=== PATIENT | female | born 1975 | race Caucasian/White ===

== ENCOUNTER 2019-10-26 15:12 | Emergency (ER) | payer SELFPAY ==
--- NOTE | ~2019-10-26 | XR_ITS ---
XR chest 1V portable DATE: 10/26/2019 16:32 INDICATION: Cough TECHNIQUE: Portable upright AP chest on 11/05/2019 at 1620 hours COMPARISON: None FINDINGS: Normal heart size. No hilar or mediastinal enlargement. No pulmonary infiltrate or consolidation, pleural effusion or pulmonary vascular congestion or pneumo thorax. Status post cervical spine surgical fusion. Mild levoscoliosis of the thoracic spine. IMPRESSION: No active cardiopulmonary disease Reviewed, dictated and finalized at location A.
[2019-10-26 15:17] VITALS: BP 138/85; PULSE 139; RESP 20; TEMP 37.3; O2SAT 98
--- NOTE | 2019-10-26 15:43 | ECG_ITS ---
Measurements Intervals [place] Rate: 97 P: -2 IA: 124 QRS: -2 QRSD: 82 T: 26 QT: 399 QTc: 509 Interpretive Statements SINUS RHYTHM NONSPECIFIC ST ELEVATION IN ANTERIOR LEADS BORDERLINE T WAVE ABNORMALITY- INFERIOR LEADS BORDERLINE ECG Electronically Signed On 10-26-2019 18:56:30 CDT by Jun Russo D.O.
--- NOTE | 2019-10-26 15:50 | ED.GENADULT ---
HPI - General Adult General Chief complaint: Unspecified Stated complaint: PSYCH MED REFILL Time Seen by Provider: 10/26/19 15:17 Source: patient Mode of arrival: ambulatory Limitations: no limitations History of Present Illness HPI narrative: Patient is a 44-year-old female who presents to emergency department for evaluation of anxiety wanting a refill of her psych medications patient denies any recent illness. Patient presents with family. Patient notes history of chronic anxiety patient has had increasing anxiety of coronavirus. . Patient notes that she has had some rhinorrhea. Patient notes history of tobacco abuse and anxiety. Patient notes she is currently out of anxiety medicine but denies any suicidal or homicidal ideation. Related Data Allergies Allergy/AdvReac Type Severity Reaction Status Date / Time No Known Allergies Allergy Unverified 03/02/15 16:24 Review of Systems Review of Systems: All systems reviewed & are unremarkable except as noted in HPI and below PMFSH Past Medical History Medical History (Updated 10/26/19 @ 18:01 by Mohsen Ponce PA-C) Anxiety Social History Social History Smoking status: Never smoker Exam Narrative: Exam Narrative: GENERAL: Well-appearing, well-nourished, and in no acute distress. HEAD: Normocephalic, atraumatic. EYES: PERRLA and EOMI. ENT: Nares clear, no rhinorrhea or epistaxis. Mucous membranes moist. Oropharynx without tonsillar hypertrophy exudate or other lesions. NECK: Supple. No adenopathy or masses. CHEST: Clear to auscultation. No respiratory distress. No wheezes rales or rhonchi HEART: Tachycardic rate and regular rhythm. No murmur heard. Normal peripheral pulses. ABDOMEN: Soft, nontender, nondistended, normal active bowel sounds. EXTREMITIES: Normal range of motion. No edema. SKIN: Warm, dry, no rash. NEURO: No focal deficits. Alert and oriented x3. PSYCH: Normal mood and affect. Course Course Emergency Course: Patient resting comfortably in the room at this time feeling much better notes that she will follow with primary care as instructed patient will be treated for urinary tract infection will be given inhaler and has been advised to quit smoking with her wheezing afebrile nontoxic-appearing no distress no emesis felt appropriate for outpatient reevaluation. Vital Signs Vital signs: Vital Signs Temperature 99.1 F 10/26/19 15:17 Pulse Rate 139 H 10/26/19 15:17 Respiratory Rate 20 10/26/19 15:17 Blood Pressure 138/85 10/26/19 15:17 Pulse Oximetry 98 10/26/19 15:17 Temperature 99.1 F 10/26/19 15:17 Pulse Rate 139 H 10/26/19 15:17 Respiratory Rate 20 10/26/19 15:17 Blood Pressure 138/85 10/26/19 15:17 Pulse Oximetry 98 10/26/19 15:17 Medical Decision Making MDM Narrative Medical decision making narrative: See course for medical decision make Vital Signs Vital Signs: Vital Signs Temperature 99.1 F 10/26/19 15:17 Pulse Rate 139 H 10/26/19 15:17 Respiratory Rate 10/26/19 15:17 Blood Pressure 138/85 10/26/19 15:17 Pulse Oximetry 98 10/26/19 15:17 Temperature 99.1 F 10/26/19 15:17 Pulse Rate 139 H 10/26/19 15:17 Respiratory Rate 10/26/19 15:17 Blood Pressure 138/85 10/26/19 15:17 Pulse Oximetry 98 10/26/19 15:17 Discharge Plan Discharge Clinical Impression: Urinary tract infection, Bronchitis Patient Disposition: Home, Self-Care Condition: Stable Instructions: Antibiotic Form, Acute Bronchitis (ED) Additional Instructions: Follow up with your primary care provider within 5-7 days. Go to ER for shortness of breath, difficulty breathing, chest pain, fever/chills, weakness, nauseau/vomitting, etc. or any other concerns. Take any prescribed medications as directed. If you do not have a drug allergy to tylenol or motrin and can tolerate it then take tylenol or motrin as needed for dis
[2019-10-26 16:14] LABS: Basophils Percent Auto 0.3 % (0.2-1.2); Eosinophils Percent Auto 0.2 % (0-4.4); Hematocrit 44.2 % (37.0-47.0); Hemoglobin 15.7 g/dL (12.0-15.0); Immature Granulocyte Absolute 0.08 K/mm3 (0.00-0.031); Immature Granulocyte Percent A 0.5 % (0-0.5); Lymphocytes Percent Auto 11.5 % (18.3-44.2); Mean Corpuscular HGB Conc 35.5 g/dl (32-36); Mean Corpuscular Volume 84.5 fl (80-100); Mean Platelet Volume 11.7 fl (7.4-10.4); Monocytes Absolute Auto 1.3 K/mm3 (0.1-0.6); Monocytes Percent Auto 8.2 % (2.6-8.5); Neutrophils Absolute Auto 12.4 K/mm3 (1.3-6.7); Neutrophils Percent Auto 79.3 % (45.5-73.1); Platelet Count Result 391 k/mm3 (150-375); Red Blood Count 5.23 M/mm3 (4.2-5.4); Red Cell Distribution Width 12.7 % (11.5-14.5); White Blood Count 15.6 K/mm3 (4.5-10.0)
[2019-10-26 16:26] LABS: Alanine Aminotransferase 19 U/L (4-35); Albumin Level 4.9 g/dL (3.5-5.1); Alkaline Phosphatase 106 U/L (38-126); Aspartate Amino Transferase 23 U/L (14-36); Bilirubin,Total 0.9 mg/dL (0.2-1.3); Blood Urea Nitrogen 15 mg/dL (7-17); Calcium 9.5 mg/dL (8.4-10.2); Carbon Dioxide 20 mmol/L (22-30); Chloride 105 mmol/L (98-107); Estimated CRCL calculation 78 ml/min; Estimated Glomerular Filt Rate > 60; Glucose 118 mg/dL (65-105); Potassium 2.9 mmol/L (3.4-5.0); Sodium 138 mmol/L (137-145)
[2019-10-26] MEDS: LORAZEPAM INJ 2 MG/ML VIAL 1 MG IV PUSH (16:44)
[2019-10-26 17:10] LABS: Add Urine Microscopic? YES; Appearance Urine Cloudy (Clear); Bacteria Urine Trace /hpf; Bilirubin Urine 1+ (Negative); Blood Urine Negative (Negative); Color Urine Amber (Yellow); Glucose Urine UA 1+ mg/dL (Negative); Ketones Urine 2+ mg/dL (Negative); Leukocyte Esterase Ur Negative LEU/UL (Negative); Mucus Urine Heavy /lpf; Nitrate Urine Negative (Negative); Protein Urine 3+ mg/dL (Negative); Specific Grav Ur 1.028 (1.001-1.035); Squamous Epithelial Cell Urine Many /hpf (Few); WBC Urine 16-20 /hpf
[2019-10-26] MEDS: predniSONE 20 MG TABLET 60 MG PO (17:19)
[2019-10-26 17:36] LABS: Amphetamine Screen Urine Negative (Negative); Barbiturate Screen Urine Negative (Negative); Benzodiazepines Screen Urine Negative (Negative); Cannabinoid Screen Urine Positive (Negative); Cocaine Screen Urine Negative (Negative); Methadone Screen Urine Negative (Negative); Opiate Screen Urine Negative (Negative); Phencyclidine Screen Urine Negative (Negative)
[2019-10-26 18:17] VITALS: BP 134/101; PULSE 105; RESP 19; O2SAT 100
[2019-10-26 18:18] VITALS: BP 134/101; PULSE 105; O2SAT 100
== END 2019-10-26 18:19 | disposition home or self-care (01) ==
PROVIDERS: Emergency Medicine Emergency Medical Services; Emergency Provider Emergency Medicine
DX: N39.0 Urinary tract infection, site not specified (principal); J40 Bronchitis, not specified as acute or chronic; F41.9 Anxiety disorder, unspecified; Z72.0 Tobacco use
CPT/HCPCS: 36415; 71045; 80053; 80307; 81001; 85025; 87086; 87088; 93005; 96374; 99284; A9270; J2060; J7512

== ENCOUNTER 2019-10-26 21:27 | Emergency (ER) | payer SELFPAY ==
[2019-10-26 21:23] VITALS: BP 142/100; PULSE 124; RESP 18; TEMP 36.5; O2SAT 98
--- NOTE | 2019-10-26 21:57 | ED.GENADULT ---
HPI - General Adult General Chief complaint: Psychiatric Symptoms Stated complaint: hearing voices History of Present Illness HPI narrative: Patient is a 44-year-old female who presents the ER with 2 complaints. She reports that she is hearing voices but they are not telling her to hurt herself or anybody else. She typically hears them through the TV or telephone. She reports she supposed take BuSpar for this but has not been. She reports history of marijuana use but no drug use today. Her other complaint is shortness of breath. Patient was seen earlier in the ER and found to have a leukocytosis with a negative chest x-ray and a mild UTI. She is prescribed albuterol as well as Keflex. Patient reports she has not used her albuterol for her shortness of breath. She does however continue to smoke cigarettes. Patient reports she does have a place to stay and feels safe there. Related Data Allergies Allergy/AdvReac Type Severity Reaction Status Date / Time No Known Allergies Allergy Unverified 03/02/15 16:24 Review of Systems Review of Systems: All systems reviewed & are unremarkable except as noted in HPI and below Constitutional: Constitutional: Denies chills, Denies fever(s) and Denies weakness ENT: Denies nasal congestion and Denies sore throat Cardiovascular: Cardiovascular: Denies chest pain Respiratory: Respiratory: Denies cough, Reports dyspnea and Reports wheezing Gastrointestinal: Gastrointestinal: Denies abdominal pain, Denies nausea and Denies vomiting Psychiatric: Psychiatric: Denies anxiety, Reports depression, Denies homicidal ideation and Denies suicidal ideation PMF Past Medical History Medical History (Updated 10/27/19 @ 00:15 by Justo Smart MD) Anxiety Depression Social History Social History (Updated 10/26/19 @ 22:25 by Justo Smart MD) Smoking status: Current every day smoker Exam Narrative: Exam Narrative: GENERAL: Well-appearing, well-nourished, and in no acute distress. HEAD: Normocephalic, atraumatic. ENT: Mucous membranes moist.. CHEST: Coarse ronchi worse at the bases bilaterally. No respiratory distress. HEART: Tachycardic and regular. Normal peripheral pulses. ABDOMEN: Soft, nontender, nondistended. EXTREMITIES: Normal range of motion. No edema. NEURO: Alert and oriented x3. PSYCH: Normal mood and flat affect. Does not seem to be responding to internal stimuli. No homicidal or suicidal ideation. Course Course Emergency Course: Lung sounds improved with albuterol use. Patient has no additional complaints. Hydrated and tachycardia improved. Discharge home. Vital Signs Vital signs: Vital Signs Temperature 97.7 F 10/26/19 21:23 Pulse Rate 124 H 10/26/19 21:23 Respiratory Rate 18 10/26/19 21:23 Blood Pressure 142/100 H 10/26/19 21:23 Pulse Oximetry 98 10/26/19 21:23 Temperature 97.7 F 10/26/19 21:23 Pulse Rate 124 H 10/26/19 21:23 Respiratory Rate 18 10/26/19 21:23 Blood Pressure 142/100 H 10/26/19 21:23 Pulse Oximetry 98 10/26/19 21:23 Medical Decision Making Vital Signs Vital Signs: Vital Signs Temperature 97.7 F 10/26/19 21:23 Pulse Rate 124 H 10/26/19 21:23 Respiratory Rate 18 10/26/19 21:23 Blood Pressure 142/100 H 10/26/19 21:23 Pulse Oximetry 98 10/26/19 21:23 Temperature 97.7 F 10/26/19 21:23 Pulse Rate 124 H 10/26/19 21:23 Respiratory Rate 18 10/26/19 21:23 Blood Pressure 142/100 H 10/26/19 21:23 Pulse Oximetry 98 10/26/19 21:23 Lab Data Lab results narrative: Labs reviewed from previous visit today. Patient with leukocytosis Discharge Plan Discharge Clinical Impression: Bronchitis Patient Disposition: Home, Self-Care Condition: Stable Instructions: Acute Bronchitis (ED) Additional Instructions: Return to the ER if you have chest pain or shortness of breath, cannot keep down food or water, you lose consciousness, you have additional concerns. Pre
--- NOTE | 2019-10-26 22:36 | PC.NURSE ---
called with concern of not sleeping for 3-5 days and how she wasn't able to get any of her medication due to the virus going around. He states she needs meds that are normally taken and Benadryl so she wont from not being able to sleep. MD Smart notified of phone call.
[2019-10-26] MEDS: SODIUM CHLORIDE 0.9% IV 1,000 ML 999 ML IV CONT (23:10)
[2019-10-26 23:11] VITALS: BP 125/95; PULSE 121; RESP 29; O2SAT 98
[2019-10-27 00:25] VITALS: PULSE 99; RESP 38; O2SAT 100
== END 2019-10-27 00:22 | disposition home or self-care (01) ==
PROVIDERS: Emergency Provider Emergency Medicine
DX: F41.9 Anxiety disorder, unspecified (principal); F32.9 Major depressive disorder, single episode, unspecified; F17.210 Nicotine dependence, cigarettes, uncomplicated; J40 Bronchitis, not specified as acute or chronic
CPT/HCPCS: 96360; 99283; J7030

== ENCOUNTER 2019-11-03 16:00 | Emergency (ER) | payer MEDICAID, SELFPAY ==
[2019-11-03 16:17] VITALS: BP 109/91; PULSE 110; RESP 19; TEMP 36.6; O2SAT 99
--- NOTE | 2019-11-03 17:06 | ED.SKABFB ---
HPI - Skin/Abscess/Foreign Bdy General Chief complaint: Skin/Abscess/Foreign Body Stated complaint: rash Time Seen by Provider: 11/03/19 16:22 Source: patient Mode of arrival: ambulatory Limitations: no limitations History of Present Illness HPI narrative: This is a 44 year old female that presents to the ER for itchy rash to the arms x 1 week. Reports tingling in her hands as well. Reports similar symptoms in her . Denies fever, erythema or warmth. Related Data Home Medications Medication Instructions Recorded Confirmed hydroxyzine HCl 25 mg PO QID PRN 11/03/19 olanzapine 10 mg PO HS 11/03/19 propranolol 10 mg PO Q12H 11/03/19 trazodone 100 mg PO HS PRN 11/03/19 Allergies Allergy/AdvReac Type Severity Reaction Status Date / Time No Known Allergies Allergy Verified 11/03/19 16:20 Review of Systems Review of Systems: Narrative: CONSTITUTIONAL: Denies fever SKIN: Reports rash and itching. All systems reviewed & are unremarkable except as noted in HPI and below PMFSH Past Medical History Medical History (Updated 11/03/19 @ 17:10 by Erica Sullivan PA-C) Anxiety Depression Social History Social History (Updated 10/26/19 @ 22:25 by Justo Smart MD) Smoking status: Current every day smoker Gender identity (if verbalized by the patient): Female Exam Narrative: Exam Narrative: GENERAL: Well-appearing, well-nourished, and in no acute distress. HEAD: Normocephalic, atraumatic. EYES: EOMI. EXTREMITIES: Normal range of motion. No edema. SKIN: Warm, dry. Small papules with excoriation to the hands NEURO: No focal deficits. Alert and oriented x3. PSYCH: Normal mood and affect Course Vital Signs Vital signs: Vital Signs Temperature 97.9 F 11/03/19 16:17 Pulse Rate 110 H 11/03/19 16:17 Respiratory Rate 19 11/03/19 16:17 Blood Pressure 109/91 H 11/03/19 16:17 Pulse Oximetry 99 11/03/19 16:17 Temperature 97.9 F 11/03/19 16:17 Pulse Rate 110 H 11/03/19 16:17 Respiratory Rate 19 11/03/19 16:17 Blood Pressure 109/91 H 11/03/19 16:17 Pulse Oximetry 99 11/03/19 16:17 MDM - Skin/Abscess/Foreign Bdy MDM Narrative Medical decision making narrative: Patient presents the emergency department for itchy rash with similar symptoms and her . Patient and will be treated for scabies. She is to follow-up with her primary care doctor. She is given warnings to return to the ER Critical Care Time Critical Care Time Critical Care Time: No Discharge Plan Discharge Clinical Impression: Rash and nonspecific skin eruption Patient Disposition: Home, Self-Care Condition: Stable Instructions: Scabies (ED) Additional Instructions: Return to the emergency department if you experience fever, redness and swelling of your arms, or any other symptoms that are concerning to you Apply cream as prescribed. Claritin daily for itching Follow up with your primary care doctor Prescriptions: New permethrin 5 % cream 1 applic TOPICAL ONCE Qty: 60 RF: 0 No Action olanzapine 10 mg Tablet 10 mg PO HS RF: 0 propranolol 10 mg Tablet 10 mg PO Q12H RF: 0 trazodone 100 mg Tablet 100 mg PO HS PRN (Reason: Insomnia) RF: 0 hydroxyzine HCl 25 mg Tablet 25 mg PO QID PRN (Reason: Anxiety) RF: 0 Follow-up/Referrals: PHYSICIAN,VARNISH MAKER [Primary Care Provider] -
== END 2019-11-03 17:19 | disposition home or self-care (01) ==
PROVIDERS: Emergency Provider Emergency Medicine
DX: R21 Rash and other nonspecific skin eruption (principal); F41.9 Anxiety disorder, unspecified; F32.9 Major depressive disorder, single episode, unspecified; F17.200 Nicotine dependence, unspecified, uncomplicated
CPT/HCPCS: 99283

== ENCOUNTER 2019-11-17 18:00 | Emergency (ER) | payer MEDICAID, SELFPAY ==
[2019-11-17 18:15] VITALS: BP 153/91; PULSE 88; RESP 16; TEMP 37.1; O2SAT 99
--- NOTE | 2019-11-17 18:24 | ED.DENTAL ---
HPI - Dental/Oral General Chief complaint: Dental/Oral Stated complaint: tooth ache Time Seen by Provider: 11/17/19 18:16 Source: patient and RN notes reviewed Mode of arrival: ambulatory Limitations: no limitations History of Present Illness HPI Narrative: Patient presents today complaining of right upper tooth pain since this afternoon. The affected tooth has previously been filled with temporary material, but she has not been able to get in to see a dentist for root canal during the pandemic. Patient does have a dentist. She currently rates her pain 10 and has been taking Aleve with mild relief. She was on cephalexin 1 month ago for UTI. MD Complaint: tooth pain Related Data Home Medications Medication Instructions Recorded Confirmed hydroxyzine HCl 25 mg PO QID PRN 11/03/19 11/17/19 olanzapine 10 mg PO HS 11/03/19 11/17/19 propranolol 10 mg PO Q12H 11/03/19 11/17/19 trazodone 100 mg PO HS PRN 11/03/19 11/17/19 lisinopril 20 mg DAILY 11/17/19 11/17/19 Allergies Allergy/AdvReac Type Severity Reaction Status Date / Time No Known Allergies Allergy Verified 11/17/19 18:04 Review of Systems Review of Systems: Narrative: CONSTITUTIONAL: Denies body aches, fever, chills, or sweats. EYES: Denies visual changes, redness, or discharge. ENT: Denies rhinorrhea, congestion, sore throat, or otalgia.+ Tooth pain CARDIOVASCULAR: Denies chest pain, palpitations, or edema. RESPIRATORY: Denies cough or dyspnea. GASTROINTESTINAL: Denies abdominal pain, nausea, vomiting, or diarrhea. GENITOURINARY: Denies dysuria or hematuria. SKIN: Denies rash, itching, or wounds. MUSCULOSKELETAL: Denies back pain, joint pain, or myalgia. NEUROLOGIC: Denies headache, numbness, tingling, or weakness. PSYCH: Denies depression or anxiety. [facility] Past Medical History Medical History (Updated 11/17/19 @ 18:26 by Angeles Giron, [employer]YM[employer]ST[employer] INSTRUCTOR, ) Anxiety Depression Social History Social History (Updated 10/26/19 @ 22:25 by Justo Smart MD) Smoking status: Current every day smoker Gender identity (if verbalized by the patient): Female Comments At time of signature, I have reviewed and agree with nursing past medical, surgical, social and family history unless otherwise noted. Please see nursing chart for further information. There is no relevant family history pertinent to the presenting complaint Exam Narrative: Exam Narrative: GENERAL: Well-appearing, well-nourished, and in no acute distress. HEAD: Normocephalic, atraumatic. EYES: EOMI. No redness or drainage. Conjunctivae normal. ENT: Mucous membranes pink and moist. Periapical abscess adjacent to tooth #6 with surrounding erythematous gingiva. Tooth appears to have temporary filling material in place. Throat normal. Uvula midline. NECK: Normal AROM. Supple. No lymphadenopathy. CHEST: No respiratory distress. EXTREMITIES: Normal range of motion. No edema. SKIN: Warm, dry, no rash. Capillary refill normal. Normal skin turgor. NEURO: No focal deficits. Alert and oriented x3. Gait steady. PSYCH: Normal affect. No signs of depression or anxiety. Course Vital Signs Vital signs: Vital Signs Temperature 98.7 F 11/17/19 18:15 Pulse Rate 88 11/17/19 18:15 Respiratory Rate 16 11/17/19 18:15 Blood Pressure 153/91 H 11/17/19 18:15 Pulse Oximetry 99 11/17/19 18:15 Temperature 98.7 F 11/17/19 18:15 Pulse Rate 88 11/17/19 18:15 Respiratory Rate 16 11/17/19 18:15 Blood Pressure 153/91 H 11/17/19 18:15 Pulse Oximetry 99 11/17/19 18:15 Reviewed. Pt has been instructed to follow up with her PCP regarding her elevated blood pressure today. MDM - Dental/Oral Differential Diagnosis Differential diagnosis: Likely gingival abscess, dental caries, toothache and dental abscess Critical Care Time Critical Care Time Critical Care Time: No Discharge Plan Discharge Clinical Impression: Dental abscess Patient Disposition: Home, Self-Care C
== END 2019-11-17 18:30 | disposition home or self-care (01) ==
PROVIDERS: Emergency Provider Nurse Practitioner
DX: K04.7 Periapical abscess without sinus (principal); R03.0 Elevated blood-pressure reading, without diagnosis of hypertension; F41.9 Anxiety disorder, unspecified; F32.9 Major depressive disorder, single episode, unspecified; Z98.1 Arthrodesis status
CPT/HCPCS: 99213; G0463

== ENCOUNTER 2025-06-17 14:03 | Emergency (ER) | payer SELFPAY ==
--- NOTE | ~2025-06-17 | XR_ITS ---
EXAMINATION: XR foot LT min 3V, 06/17/2025 14:45 COVER CUTTER MACHINE HISTORY: L foot wound COMPARISON: No comparisons available. Findings: No acute fracture or malalignment. No significant degenerative changes. Soft tissues unremarkable. Impression: No acute fracture or malalignment. Reviewed, dictated and finalized at location P. R CUTTER MACHINE Impression: No acute fracture or malalignment.
--- NOTE | ~2025-06-17 | XR_ITS ---
EXAMINATION: XR foot RT min 3V, 06/17/2025 14:45 BOOM CRANE OPERATOR HISTORY: R foot wound COMPARISON: No comparisons available. Findings: No osseous destruction or fracture is identifiedHallux valgus. Moderate degenerative changes of the first metatarsophalangeal joint. Soft tissues unremarkable. Impression: No acute fracture or malalignment. Reviewed, dictated and finalized at location P. CRANE OPERATOR Impression: No acute fracture or malalignment.
--- NOTE | ~2025-06-17 | XR_ITS ---
EXAMINATION: XR hip BI 2V w AP pelvis, 06/17/2025 14:45 DISHWASHER PREPARER HISTORY: hip pain COMPARISON: No comparisons available. Findings: No acute fracture or malalignment. No significant degenerative changes. Soft tissues unremarkable. Impression: No acute fracture or malalignment. Reviewed, dictated and finalized at location P. WASHER PREPARER Impression: No acute fracture or malalignment.
--- NOTE | ~2025-06-17 | XR_ITS ---
EXAMINATION: XR chest 2V, 06/17/2025 16:05 UTILITY PERSON HISTORY: r/o pneumonia COMPARISON: No comparisons available. Technique: 2 views obtained. Findings: The lungs are clear, no effusion. No pneumothorax. Heart is normal size. Mediastinal and hilar contours are within normal limits. Bony thorax no acute abnormality. Impression: No acute cardiopulmonary abnormality. Reviewed, dictated and finalized at location P. ITY PERSON Impression: No acute cardiopulmonary abnormality.
[2025-06-17 13:50] VITALS: BP 115/95; PULSE 75; RESP 19; TEMP 33.1; O2SAT 100
--- NOTE | 2025-06-17 14:16 | ED.ALCOHOL ---
HPI - Alcohol General Chief Complaint: Alcohol Stated Complaint: all over pain ETOH History of Present Illness HPI narrative: Patient is a 50-year-old female who presents to the ER with acute intoxication and cold exposure. Per EMS, patient was in the police department lobby when she got kicked out for bad behavior. Approximately two hours later she was found across the street, intoxicated, in inclement weather. Patient endorses a history of high blood pressure and opiate addiction. She reports she does not take any regular medications. 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 She denies any numbness/tingling in her hands/feet, but endorses pain all over, especially in her bilateral hips.. Pt denies any shortness of breath, chest pain, or abdominal pain. She endorses full range of motion in all extremities. Related Data Home Medications ?Medication ?Instructions ?Recorded ?Confirmed ?Last Taken ?Type hydroxyzine HCl 25 mg tablet 25 mg PO QID PRN Anxiety 11/03/19 11/17/19 Unknown History olanzapine 10 mg tablet 10 mg PO HS 11/03/19 11/17/19 Unknown History propranolol 10 mg tablet 10 mg PO Q12H 11/03/19 11/17/19 Unknown History trazodone 100 mg tablet 100 mg PO HS PRN Insomnia 11/03/19 11/17/19 Unknown History lisinopril 20 mg tablet 20 mg DAILY 11/17/19 11/17/19 Unknown History Allergies Allergy/AdvReac Type Severity Reaction Status Date / Time No Known Allergies Allergy Verified 11/17/19 18:04 Review of Systems Review of Systems: All systems reviewed & are unremarkable except as noted in HPI and below PMFSH Past Medical History Medical History Depression Anxiety Social History Social History Smoking status: Current every day smoker Gender identity (if verbalized by the patient): Female Exam Narrative: GENERAL: Well appearing, well-nourished, non-toxic, in no acute distress. HEAD: Normocephalic, atraumatic. NECK: Supple. No adenopathy, no masses. RESPIRATORY: Airway patent, respirations nonlabored. Clear to auscultation bilaterally, no rales, rhonchi, wheezing. CARDIOVASCULAR: Regular rate and rhythm without murmurs, rubs, or gallops. Peripheral pulses 2+ and equal bilaterally. ABDOMINAL: Soft, nontender, nondistended, no hepatosplenomegaly. Normoactive BS. MUSCULOSKELETAL: Moves all extremities. Strength/ROM intact without gross deformities. Bilateral hip pain with palpation SKIN: cool, reddened bilateral feet and hands, trench foot present on both feet, blood blisters (R foot quarter-sized, L foot dime-sized) on bilateral great toe phalanxes with no visible drainage NEURO: A&O X3. Speech clear. Cranial nerves II-XII intact. No ataxic movements. PSYCHIATRIC: Appropriate mood and affect. Normal interaction. Course Vital Signs Vital signs: Vital Signs Temperature 33.1 C L 06/17/25 13:50 Pulse Rate 75 06/17/25 13:50 Respiratory Rate 19 06/17/25 13:50 Blood Pressure 115/95 H 06/17/25 13:50 Pulse Oximetry 100 06/17/25 13:50 Oxygen Delivery Room Air 06/17/25 13:50 Temperature 37.1 C 06/17/25 19:11 Pulse Rate 79 06/17/25 15:07 Respiratory Rate 18 06/17/25 15:07 Blood Pressure 115/95 H 06/17/25 13:50 Pulse Oximetry 99 06/17/25 15:07 Oxygen Delivery Room Air 06/17/25 13:50 MDM - Alcohol MDM Narrative Medical decision making narrative: Patient is a 50-year-old female who presents to the ER with acute intoxication and cold exposure. Per EMS, patient was in the police department lobby when she got kicked out for bad behavior. Approximately two hours later she was found across the street, intoxicated, in inclement weather. Patient endorses a history of high blood pressure and opiate addiction. She reports she does not take any regular medications. 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 She denies any numbness/tingling in her hands/feet, but endorses pain all over, especially in her bilateral hips. Pt denies any shortness of breath, chest pain, or abdominal pain. She endorses full range of motion in all extremities. Labs Ordered: CBC, CMP, UA, UDS, magnesium, phosphorus, lactic acid Imaging Ordered: Right foot x-ray, left foot x-ray, bilateral hip x-ray Medications Ordered: Tdap Results: Patient's bilateral hip x-rays, right foot x-ray, and left foot x-ray indicates no acute osseous abnormalities. Diagnosis: trench foot, bilateral foot wounds Risks: CIWA: CIWA-Ar for Alcohol Withdrawal from [facility] on 06/17/2025 All calculations should be rechecked by clinician prior to use RESULT SUMMARY: 3 points Patients with scores <= typically do not require medication for withdrawal. INPUTS: Nausea/vomiting ?> 0 = No nausea and no vomiting Tremor ?> 0 = No tremor Paroxysmal sweats ?> 0 = No sweat visible Anxiety ?> 1 = Mildly anxious Agitation ?> 0 = Normal activity Tactile disturbances ?> 2 = Mild itching, pin and needles, burning, or numbness Auditory disturbances ?> 0 = Not present Visual disturbances ?> 0 = Not present Headache/fullness in head ?> 0 = Not Present Orientation/clouding of sensorium ?> 0 = Oriented, can do serial additions Consults: 1444- Spoke with professor of psychiatry, Dr. Wang, who advised pt does not need prophylactic antibiotics unless there are clear indications of infect. Pt can follow-up with podiatry as an outpatient. She advised to slowly warm pt's feet in the ER. Patient Education/Shared MDM: Patient's body temperature has returned to normal after an hour and a half covered with a Bryan Hugger. She continues to be A&O x4. I do not have concerns for pt's lactic acid elevation related to infection, as there is no identifiable source for infection. Pt's lactic acid level has decreased significantly with 2L NS IV bolus. Her bilateral feet are much less red than when she first arrived in the ER, with + CWMS and + ROM. Patient continues to deny any signs/symptoms of alcohol withdrawal and reports ?I do not usually drink, my drug of choice is fentanyl. Results of lab work and imaging shared with patient. 1999- Pt continues to endorse pain following Toradol and Tylenol administration. Spoke with attending, Dr Armstrong, who advised pt could receive Ketamine 0.2mg/kg to help relieve her symptoms. After discussion with pt, we will try treating her pain with a muscle relaxant instead. Patient strongly advised to maintain hydration status upon discharge and refrain from further alcohol use. She should follow-up with her PCP as soon as possible for re-evaluation. She will not be discharged home with any new prescriptions. Strict return precautions provided. Patient verbalized understanding and is in agreement with plan. Vital signs stable at time of discharge. All questions answered. Differential Diagnosis Differential diagnosis: Likely hypomagnesemia, alcohol intoxication and other (Dehydration, hypothermia) Lab Data Attestation: I reviewed the patient's lab results. 06/17/25 15:07 06/17/25 15:07 Labs: Lab Results 06/17/25 06/17/25 06/17/25 Range/Units 15:07 15:07 15:07 WBC 12.6 H (4.5-10.0) K/mm3 RBC 5.12 (4.2-5.4) M/mm3 Hgb 15.6 H (12.0-15.0) g/dL Hct 45.3 (37.0-47.0) % MCV 88.5 (80-100) fl MCH 30.5 (26-34) pg MCHC 34.4 (32-36) g/dl RDW 12.5 (11.5-14.5) % Plt Count 446 H (150-375) k/mm3 MPV 10.3 (7.4-10.4) fl Immature Gran % (Auto) 0.3 (0-0.5) % Neut % (Auto) 87.5 H (45.5-73.1) % Lymph % (Auto) 9.5 L (18.3-44.2) % [place] % (Auto) 2.0 L (2.6-8.5) % Eos % (Auto) 0.2 (0-4.4) % Baso % (Auto) 0.5 (0.2-1.2) % Lymph # (Auto) 1.19 (0.9-3.2) K/mm3 [place] # (Auto) 0.3 (0.1-0.6) K/mm3 Eos # (Auto) 0.0 (0-0.3) K/mm3 Baso # (Auto) 0.1 (0.0-0.1) K/mm3 Abs Immat Gran (auto) 0.04 H (0.00-0.031) K/mm3 Absolute Neuts (auto) 11.0 H (1.3-6.7) K/mm3 Absolute Nucleated RBC 0.000 (0.0-0.012) K/mm3 Nucleated RBC % 0.0 (0.0-0.2) % PT 13.0 (11.1-14.7) Seconds INR 1.0 APTT 24.4 (22.3-36.8) Seconds Sodium 141 (137-145) mmol/L Potassium 3.6 (3.4-5.0) mmol/L Chloride 103 (98-107) mmol/L Carbon Dioxide 22 (22-30) mmol/L Anion Gap 16 H (4-12) mmol/L BUN 12 (7-17) mg/dL Creatinine 0.54 L (0.7-1.0) mg/dL Estim Creat Clear Calc 89 ml/min Estimated GFR > 60 (59 - ) Glucose 108 (65-110) mg/dL Lactic Acid 5.1 H* (0.7-2.0) mmol/L Calcium 9.2 (8.4-10.2) mg/dL Phosphorus 3.5 Cancelled (2.5-4.5) mg/dL Magnesium 2.2 Cancelled (1.6-2.3) mg/dL Total Bilirubin 0.5 (0.2-1.3) mg/dL AST 52 H (14-36) U/L ALT 48 H (6-35) U/L Alkaline Phosphatase 95 (38-126) U/L Total Creatine Kinase 82 (30-135) U/L Total Protein 10.2 H (6.3-8.2) g/dL Albumin 5.2 H (3.5-5.1) g/dL Urine Color (Yellow) Urine Appearance (Clear) Urine pH (5.0-9.0) Ur Specific [place] (1.001-1.035) Urine Protein (Negative) mg/dL Urine Glucose (UA) (Negative) mg/dL Urine Ketones (Negative) mg/dL Ur Blood (Man) (Negative) Urine Nitrate (Negative) Urine Bilirubin (Negative) Urine Urobilinogen (<2.0) mg/dL Leukocyte Esterase Rfl (Negative) VJ/UL Urine RBC (0-2) /hpf Urine WBC (0-3) /hpf Ur Squamous Epith Cells (Few) /hpf Urine Bacteria /hpf Urine Casts Urine Opiates Screen (Negative) Urine Methadone Screen (Negative) Ur Barbiturates Screen (Negative) Ur Phencyclidine Scrn (Negative) Ur Amphetamine Screen (Negative) U Benzodiazepines Scrn (Negative) Urine Cocaine Screen (Negative) U Cannabinoids Screen (Negative) Ethyl Alcohol 170 (<10) mg/dL Influenza A (RT-PCR) (Negative) Influenza B (RT-PCR) (Negative) RSV (RT-PCR) (Negative) SARS-CoV-2 RNA (RT-PCR) (Negative) 06/17/25 06/17/25 06/17/25 Range/Units 17:32 18:13 18:30 WBC (4.5-10.0) K/mm3 RBC (4.2-5.4) M/mm3 Hgb (12.0-15.0) g/dL Hct (37.0-47.0) % MCV (80-100) fl MCH (26-34) pg MCHC (32-36) g/dl RDW (11.5-14.5) % Plt Count (150-375) k/mm3 MPV (7.4-10.4) fl Immature Gran % (Auto) (0-0.5) % Neut % (Auto) (45.5-73.1) % Lymph % (Auto) (18.3-44.2) % [place] % (Auto) (2.6-8.5) % Eos % (Auto) (0-4.4) % Baso % (Auto) (0.2-1.2) % Lymph # (Auto) (0.9-3.2) K/mm3 [place] # (Auto) (0.1-0.6) K/mm3 Eos # (Auto) (0-0.3) K/mm3 Baso # (Auto) (0.0-0.1) K/mm3 Abs Immat Gran (auto) (0.00-0.031) K/mm3 Absolute Neuts (auto) (1.3-6.7) K/mm3 Absolute Nucleated RBC (0.0-0.012) K/mm3 Nucleated RBC % (0.0-0.2) % PT (11.1-14.7) Seconds INR APTT (22.3-36.8) Seconds Sodium (137-145) mmol/L Potassium (3.4-5.0) mmol/L Chloride (98-107) mmol/L Carbon Dioxide (22-30) mmol/L Anion Gap (4-12) mmol/L BUN (7-17) mg/dL Creatinine (0.7-1.0) mg/dL Estim Creat Clear Calc ml/min Estimated GFR (59 - ) Glucose (65-110) mg/dL Lactic Acid 3.1 H (0.7-2.0) mmol/L Calcium (8.4-10.2) mg/dL Phosphorus (2.5-4.5) mg/dL Magnesium (1.6-2.3) mg/dL Total Bilirubin (0.2-1.3) mg/dL AST (14-36) U/L ALT (6-35) U/L Alkaline Phosphatase (38-126) U/L Total Creatine Kinase (30-135) U/L Total Protein (6.3-8.2) g/dL Albumin (3.5-5.1) g/dL Urine Color Yellow (Yellow) Urine Appearance Clear (Clear) Urine pH 5.5 (5.0-9.0) Ur Specific [place] 1.013 (1.001-1.035) Urine Protein Trace (Negative) mg/dL Urine Glucose (UA) Negative (Negative) mg/dL Urine Ketones 1+ H (Negative) mg/dL Ur Blood (Man) Negative (Negative) Urine Nitrate Negative (Negative) Urine Bilirubin Negative (Negative) Urine Urobilinogen 1.0 (<2.0) mg/dL Leukocyte Esterase Rfl Negative (Negative) VJ/UL Urine RBC 0-2 (0-2) /hpf Urine WBC 0-5 (0-3) /hpf Ur Squamous Epith Cells Few (Few) /hpf Urine Bacteria Rare /hpf Urine Casts 3-5 Urine Opiates Screen Negative (Negative) Urine Methadone Screen Negative (Negative) Ur Barbiturates Screen Negative (Negative) Ur Phencyclidine Scrn Negative (Negative) Ur Amphetamine Screen Negative (Negative) U Benzodiazepines Scrn Negative (Negative) Urine Cocaine Screen Negative (Negative) U Cannabinoids Screen Positive A (Negative) Ethyl Alcohol (<10) mg/dL Influenza A (RT-PCR) Negative (Negative) Influenza B (RT-PCR) Negative (Negative) RSV (RT-PCR) Negative (Negative) SARS-CoV-2 RNA (RT-PCR) Negative (Negative) Imaging Data Attestation: I personally reviewed and interpreted this imaging study as follows: Radiologist's impression: ITS Impressions Hip/Pelvis X-Ray 06/17/25 15:15 Impression: No acute fracture or malalignment. Foot X-Ray 06/17/25 15:16 Impression: No acute fracture or malalignment. Chest X-Ray 06/17/25 16:15 Impression: No acute cardiopulmonary abnormality. Discharge Plan Discharge Clinical Impression: Alcoholic intoxication, Hypothermia, Trench foot of left lower extremity, Trench foot of right lower extremity, Dehydration, mild, Bunion of left foot, Bunion of right foot Patient Disposition: Home Condition: Stable Instructions: Antibiotic Form Additional Instructions: Please return to the ER with any worsening symptoms. Follow-up with primary care provider as soon as possible for further evaluation. Take all medications as prescribed, including regularly scheduled medications. Patient Language: Armenian Prescriptions: No Action lisinopril 20 mg tablet 20 mg DAILY amoxicillin-pot clavulanate [Augmentin] 875-125 mg tablet 1 tablet PO Q12H 10 Days Qty: 20 0RF olanzapine 10 mg Tablet 10 mg PO HS propranolol 10 mg Tablet 10 mg PO Q12H trazodone 100 mg Tablet 100 mg PO HS PRN (Reason: Insomnia) hydroxyzine HCl 25 mg Tablet 25 mg PO QID PRN (Reason: Anxiety) Follow-up/Referrals: Brenden Pearce MD [Physician, Family Practice] Referral Note: primary care provider UNKNOWN,DOCTOR [Non-Staff] Time of Disposition: 20:49
--- NOTE | 2025-06-17 14:32 | PC.NURSE ---
patient temp reading 91.6 both orally and axillary, kala hugger in place. multiple attempts have been made to obtain iv access and blood specimens. contacting vascular access at this time.
[2025-06-17 15:07] VITALS: PULSE 79; RESP 18; O2SAT 99
[2025-06-17 15:18] LABS: Hematocrit 45.3 % (37.0-47.0); Hemoglobin 15.6 g/dL (12.0-15.0); Immature Granulocyte Percent A 0.3 % (0-0.5); Lymphocytes Absolute Auto 1.19 K/mm3 (0.9-3.2); Mean Corpuscular HGB Conc 34.4 g/dl (32-36); Mean Corpuscular Hemoglobin 30.5 pg (26-34); Mean Corpuscular Volume 88.5 fl (80-100); Nucleated Red Blood Cells Absolute Auto 0.000 K/mm3 (0.0-0.012); Nucleated Red Blood Cells Perc 0.0 % (0.0-0.2); Platelet Count Result 446 k/mm3 (150-375); Red Blood Count 5.12 M/mm3 (4.2-5.4); White Blood Count 12.6 K/mm3 (4.5-10.0)
[2025-06-17 15:29] LABS: INR 1.0; Prothrombin Time 13.0 Seconds (11.1-14.7)
[2025-06-17 15:30] LABS: Partial Thromboplastin Time 24.4 Seconds (22.3-36.8)
[2025-06-17] MEDS: TETANUS,DIPHTHERIA,AC PERTUSSIS ADULT (0.5 ML) BOOSTRIX IM (15:31)
[2025-06-17 15:34] VITALS: TEMP 36.5
[2025-06-17 15:37] LABS: Alanine Aminotransferase 48 U/L (6-35); Albumin Level 5.2 g/dL (3.5-5.1); Alkaline Phosphatase 95 U/L (38-126); Anion Gap 16 mmol/L (4-12); Aspartate Amino Transferase 52 U/L (14-36); Bilirubin,Total 0.5 mg/dL (0.2-1.3); Blood Urea Nitrogen 12 mg/dL (7-17); Calcium 9.2 mg/dL (8.4-10.2); Carbon Dioxide 22 mmol/L (22-30); Chloride 103 mmol/L (98-107); Estimated CRCL calculation 89 ml/min; Estimated Glomerular Filt Rate > 60; Glucose 108 mg/dL (65-110); Magnesium 2.2 mg/dL (1.6-2.3); Potassium 3.6 mmol/L (3.4-5.0); Sodium 141 mmol/L (137-145); Total Protein 10.2 g/dL (6.3-8.2)
[2025-06-17] MEDS: KETOROLAC 15 MG/ML VIAL (*BKC) IV PUSH (15:46)
[2025-06-17] MEDS: SODIUM CHLORIDE 0.9% IV 1,000 ML 999 ML IV CONT ×2 (15:46→16:29)
[2025-06-17 16:46] LABS: Creatine Kinase 82 U/L (30-135)
[2025-06-17 17:46] LABS: Add Urine Microscopic? YES; Appearance Urine Clear (Clear); Glucose Urine UA Negative (Negative); Leukocyte Esterase Ur Negative LEU/UL (Negative); Nitrate Urine Negative (Negative); Specific Grav Ur 1.013 (1.001-1.035)
[2025-06-17 17:59] LABS: Cannabinoid Screen Urine Positive (Negative)
[2025-06-17 18:53] LABS: Influenza A QL RT-PCR Negative (Negative); Influenza B QL RT-PCR Negative (Negative); RSV RNA, RT-PCR Negative (Negative); SARS-CoV-2 RNA PCR Negative (Negative)
[2025-06-17 19:11] VITALS: TEMP 37.1
[2025-06-17] MEDS: ACETAMINOPHEN 500 MG TABLET 1000 MG PO (20:04)
[2025-06-17] MEDS: MUPIROCIN 2% OINT 22 GM TUBE 1 APPLIC TOPICAL (21:08)
[2025-06-17] MEDS: CYCLOBENZAPRINE HCL 10 MG TABLET PO (21:08)
[2025-06-17 21:31] VITALS: BP 120/81; PULSE 88; RESP 15; TEMP 36.7; O2SAT 100
== END 2025-06-17 21:52 | disposition home or self-care (01) ==
PROVIDERS: Emergency Provider Registered Nurse
DX: F10.129 Alcohol abuse with intoxication, unspecified (principal); Y90.6 Blood alcohol level of 120-199 mg/100 ml; T69.022A Immersion foot, left foot, initial encounter; T69.021A Immersion foot, right foot, initial encounter; T68.XXXA Hypothermia, initial encounter; X31.XXXA Exposure to excessive natural cold, initial encounter; E86.0 Dehydration; M21.612 Bunion of left foot; M21.611 Bunion of right foot; Z23 Encounter for immunization; Z11.52 Encounter for screening for COVID-19; I10 Essential (primary) hypertension; F17.200 Nicotine dependence, unspecified, uncomplicated; F11.20 Opioid dependence, uncomplicated
CPT/HCPCS: 36415; 71046; 73521; 73630; 80053; 80307; 81001; 82077; 82550; 83605; 83735; 84100; 85025; 85610; 85730; 87637; 90471; 90715; 96361; 96374; 99284; A9270; J1885; J7030